=== PATIENT | female | born 1960 | race Caucasian/White ===

== ENCOUNTER 2016-12-14 14:46 | Emergency (ER) | payer BC, OTHER ==
--- NOTE | ~2016-12-14 | US67 ---
[facility] A Service of [facility] RADIOLOGY TEXT RESULTS PATIENT: TYRON BAJWA LOCATION: SED : 58 UNIT #: [id number] AGE: [address]: Daniel Rapp MD SEX: F ORDER DR: [id number] [place] [id number] E MR#: [id number] #: [id number] NAME: TYRON BAJWA : 1960 SEX: F STUDY DATE/TIME: 12/14/2016 14:43 UNIT: SED ROOM: STUDY DESCRIPTION: US Gallbladder Attending Physician: Daniel Rapp M.D. Ordering Physician: Daniel Rapp M.D. Primary Care Physician: Abby Sullivan P.A.-C.. MEDICAL IMAGING REPORT This report is preliminary unless electronic signature is present. EXAM Right upper quadrant abdominal ultrasound 12/14/2016 INDICATIONS Nausea, vomiting, diarrhea for the past 6 days. PROCEDURE Ellis-scale and Doppler imaging right upper quadrant of the abdomen. COMPARISON STUDIES None FINDINGS Visualized portions of the pancreas are unremarkable. The liver measures 15.8 cm. No liver mass on submitted images. Common duct measures 3-4 mm. Right kidney measures 9.7 cm. Normal. Unremarkable gallbladder. IMPRESSION Negative right upper quadrant ultrasound. Dictated by... Valdo Olea M.D. THIS IS AN ELECTRONICALLY VERIFIED REPORT Valdo Olea M.D. at 12/15/2016 7:23 AM [place] TD: 12/14/2016 16:34 JOB #: [id number] MEDICAL IMAGING REPORT Page 1 of 1
[~2016-12-14 14:46] MED LIST: CLARITIN10 MG PO; CYMBALTA PO; INHALER; LIPITOR40 MG; MULTI VITAMIN1 EACH
[2016-12-14 15:36] LABS: BASOPHIL% 0.4 % (0-2.5); EOSINOPHIL% 0.1 % (0.0-7.0); HEMATOCRIT 39.6 % (35.0-45.0); HEMOGLOBIN 13.2 gm/dL (12.0-16.0); LYMPHOCYTE# 1.9 X10e3 (1.0-3.5); LYMPHOCYTE% 41.2 % (17.0-45.0); MEAN CELL VOLUME 87.4 FL (83-96); MEAN CORPUSCULAR HEMOGLOBIN 29.2 PG (28-34); MEAN CORPUSCULAR HGB CONC 33.4 g/dL (30-36); MEAN PLATELET VOLUME 8.9 FL (6.5-11.5); MONOCYTE# 0.5 X10e3 (0-1.0); MONOCYTE% 10.1 % (3.0-12.0); NEUTROPHIL# 2.2 X10e3 (1.5-7.1); NEUTROPHIL% 48.2 % (40-75); PLATELET COUNT 202 X10e3 (140-420); RED BLOOD COUNT 4.53 X10e (3.90-5.30); RED CELL DISTRIBUTION WIDTH 12.1 % (11.0-15.5); WHITE BLOOD COUNT 4.6 X10e3 (4.0-10.5)
[2016-12-14 15:37] LABS: DIFF IND NO
[2016-12-14 16:01] LABS: BILIRUBIN, DIRECT 0.2 mg/dL (0.0-0.2); BILIRUBIN,INDIRECT 0.6 mg/dL (0.0-0.9); BILIRUBIN,TOTAL 0.8 mg/dL (0.2-2.0); BUN/CREATININE RATIO 11.42; CALCIUM SERUM 8.6 mg/dL (8.4-10.2); CREATININE SERUM 0.7 mg/dL (0.6-1.4); GLOM FILT RATE Estimated 96.2 mL/min (>60); POTASSIUM 3.3 mmol/L (3.5-5.1); PROTEIN TOTAL SERUM 7.3 g/dL (6.0-8.3)
[2016-12-14 16:52] LABS: URINE APPEARANCE CLEAR; URINE BILIRUBIN NEG (NEG); URINE BLOOD NEG (NEG); URINE COLOR YELLOW; URINE GLUCOSE NEG (NORM); URINE KETONE NEG (NEG); URINE LEUKOCYTE ESTERASE NEG (NEG); URINE NITRATE NEG (NEG); URINE PH 7.5 (5-8); URINE PROTEIN NEG (NEG); URINE SPECIFIC GRAVITY <=1.005 (1.003-1.035); URINE UROBILINOGEN 0.2 MG/DL (NORM)
[2016-12-14 16:54] LABS: MICRO INDICATED? NO; URINE SOURCE CLEAN CATCH
== END 2016-12-14 16:56 | disposition home or self-care (01) ==
LOC: SED 14:46
PROVIDERS: Emergency Medicine
DX: R11.10 Vomiting, unspecified (principal); F32.9 Major depressive disorder, single episode, unspecified; Z88.8 Allergy status to other drugs, medicaments and biological substances; Z79.899 Other long term (current) drug therapy
CPT/HCPCS: 36415; 76705; 80048; 80076; 81003; 83690; 85025; 86677; 96361; 96374; 96375; 99284; C9113; J2765